=== PATIENT | male | born 1995 | race Two or more races ===

== ENCOUNTER 2018-10-04 01:42 | Inpatient (IN) | payer OTHER ==
[~2018-10-04] VITALS: Ht 185.4 cm; Wt 90.7 kg
[2018-10-04 02:00] VITALS: BP 125/71
--- NOTE | 2018-10-04 02:00 | NUR ---
MS/RN RECEIVE PATIENT, DIRECT ADMIT FROM [facility], VIA AMBULANCE. PATIENT IS AWAKE, ALERT, ORIENTED, COMFORTABLE, NO C/O PAIN, BUT STATES THAT HE CAN NOT SWALLOW HER SALIVA AND THAT HE KEEPS SPITING, PROVIDED WITH EMESIS BAG, NO DISTRESS NOTED, ADMISSION DONE PER PROTOCOL, TAUGHT HOW TO USE THE CALL LIGHT AND PLACED AT BEDSIDE WITHIN REACH, PATIENT REFUSED SKIN ASSESSMENT. SEND MESSAGE TO CHRISTIE ALARCON DNP, FOR ADMISSION ORDERS. WILL MONITOR.
[2018-10-04] MEDS ORDERED: IV NS 0.9% 1,000 ML IV PRN (03:54)
[2018-10-04] MEDS ORDERED: ONDANSETRON HCL/PF 4 MG/2 ML VIAL IVP PRN (04:00)
[2018-10-04] MEDS ORDERED: Z GUARD REMEDY 2 OZ OINT TP PRN (04:00)
[2018-10-04] MEDS ORDERED: ACETAMINOPHEN 325 MG TABLET PO PRN (04:00)
[2018-10-04] MEDS ORDERED: HYDROMORPHONE INJ 2 MG/ML DISP.SYRIN IV PRN (04:00)
--- NOTE | 2018-10-04 04:25 | NUR ---
MS/RN PATIENT IS SLEEPING AT THIS TIME, AROUSABLE, APPEAR COMFORTABLE, NO DISTRESS NOTED, CALL LIGHT IN REACH. WILL CONTINUE TO MONITOR.
--- NOTE | 2018-10-04 06:21 | NUR ---
TELE/RN PATIENT IS AWAKE, ALERT, COMFORTABLE, NO CHANGE IN CONDITION. NPO ORDERED. ALL NEEDS ATTENDED AT THIS TIME, WILL CONTINUE TO MONITOR.
--- NOTE | 2018-10-04 07:35 | NUR ---
MS RN RECEIVED ON BED, AWAKE,ALERT,ORIENTED X4,NOT IN ANY FORM OF DISTRESS, RESPIRATIONS EVEN AND UNLABORED,NO SOB NOTED, LUNGS ARE CLEAR,ABDOMEN SOFT,POSITIVE BOWEL SOUNDS,DENIES PAIN AT THIS TIME, WILL MONITOR PATIENT'S CONDITION.
[2018-10-04 08:00] VITALS: BP 121/76
--- NOTE | 2018-10-04 08:30 | NUR ---
MS RN WAS SEEN BY DR. CLEMENT Islas/ ORDER TO OK TO GO HOME TODAY.
[2018-10-04 08:34] LABS: BASOPHILS # (AUTO) 0.1 /CMM (0.0-0.2); BASOPHILS % (AUTO) 1.3 % (0.0-2.0); EOSINOPHILS % (AUTO) 10.3 % (0.0-6.0); HEMATOCRIT 45 % (39-51); HEMOGLOBIN 15.2 g/dL (13.5-17.5); LYMPHOCYTES # (AUTO) 2.3 /CMM (0.8-4.8); LYMPHOCYTES % (AUTO) 31.2 % (20.0-44.0); MEAN CORPUSCULAR HGB CONC 34 g/dl (31.0-36.0); MEAN CORPUSCULAR VOLUME 91 fL (80-96); MONOCYTES # (AUTO) 0.7 /CMM (0.1-1.30); MONOCYTES % (AUTO) 9.3 % (2.0-12.0); NEUTROPHILS # (AUTO) 3.5 /CMM (1.8-8.9); NEUTROPHILS % (AUTO) 47.9 % (43.0-81.0); PLATELET COUNT (AUTO) 240 /CMM (150-450); RED BLOOD CELL COUNT(AUTO) 4.92 MIL/uL (4.5-6.0); WHITE BLOOD COUNT (AUTO) 7.4 K/uL (4.3-11.0)
[2018-10-04] MEDS ORDERED: PANTOPRAZOLE 40 MG VIAL IV SCH (09:00)
[2018-10-04 09:28] LABS: CALCIUM, SERUM 8.7 mg/dL (8.5-10.1); PHOSPHORUS 3.9 mg/dL (2.5-4.9); POTASSIUM 4.3 mmol/L (3.5-5.1)
--- NOTE | 2018-10-04 09:30 | NUR ---
MS RN WAS SEEN BY DR. CAROLYNE Islas/ ORDER TO GO HOME TODAY.
--- NOTE | 2018-10-04 11:15 | NUR ---
ms geotechnical intern instructions given,patient went home accompanied by family,no distress noted.
== END 2018-10-04 11:20 | disposition home or self-care (01) | DRG 254 ==
LOC: TELE 01:42
PROVIDERS: ADMIT Internal Medicine; ATTEND Internal Medicine
DX: T18.128A Food in esophagus causing other injury, initial encounter (principal); X58.XXXA Exposure to other specified factors, initial encounter; Y93.9 Activity, unspecified; Y92.009 Unspecified place in unspecified non-institutional (private) residence as the place of occurrence of the external cause
CPT/HCPCS: 36415; 80048-TC; 80061-TC; 83735-TC; 84100-TC; 85025-TC; 85730-TC; 87081-TC; C9113; G0378; J7030